=== PATIENT | female | born 1980 | race African-American/Black ===

== ENCOUNTER 2020-09-04 08:29 | Outpatient (REF) | payer MEDICARE, MEDICAID, SELFPAY ==
--- NOTE | 2020-09-04 08:36 | FL_ITS ---
EXAMINATION: XR GI SERIES CLINICAL INFORMATION: Reflux and cough. COMPARISON: None TECHNIQUE: Routine upper GI air-contrast study was performed in upright and lying position. FINDINGS: Following oral administration of thick barium and effervescent granules, there is normal propagation bolus from the oral cavity through the pharynx, esophagus into stomach without any evidence of obstruction, narrowing, or stricture. On placing patient prone and supine, the course, caliber and peristalsis of the stomach is normal. The mucosal pattern of the stomach, duodenal bulb and sweep is normal. There is mild gastroesophageal reflux without hiatal hernia. FLUOROSCOPY TIME: 1.6 minutes DOSE AREA PRODUCT: 64.9 uGy-m2 (microgray-meter squared) FL/FL upper GI series IMPRESSION: Mild gastroesophageal reflux without hiatal hernia. The rest of the upper GI exam is unremarkable.
--- NOTE | 2020-09-04 08:36 | FL_ITS ---
EXAMINATION: XR GI SERIES CLINICAL INFORMATION: Reflux and cough. COMPARISON: None TECHNIQUE: Routine upper GI air-contrast study was performed in upright and lying position. FINDINGS: Following oral administration of thick barium and effervescent granules, there is normal propagation bolus from the oral cavity through the pharynx, esophagus into stomach without any evidence of obstruction, narrowing, or stricture. On placing patient prone and supine, the course, caliber and peristalsis of the stomach is normal. The mucosal pattern of the stomach, duodenal bulb and sweep is normal. There is mild gastroesophageal reflux without hiatal hernia. FLUOROSCOPY TIME: 1.6 minutes DOSE AREA PRODUCT: 64.9 uGy-m2 (microgray-meter squared) FL/FL barium swallow IMPRESSION: Mild gastroesophageal reflux without hiatal hernia. The rest of the upper GI exam is unremarkable.
== END 2020-09-04 08:30 | disposition home or self-care (01) ==
LOC: HO.XRAY 08:29
PROVIDERS: Visit Provider Internal Medicine Gastroenterology
DX: K21.9 Gastro-esophageal reflux disease without esophagitis (principal); R05 Cough
CPT/HCPCS: 74220; 74240

== ENCOUNTER → 2020-09-23 08:57 | Outpatient (BNVA) | payer MEDICARE, MEDICAID, SELFPAY | PROVIDERS: PCP Internal Medicine; Visit Provider Hospitalist | DX: J45.909 Unspecified asthma, uncomplicated (principal); R60.1 Generalized edema; G47.33 Obstructive sleep apnea (adult) (pediatric); Z79.899 Other long term (current) drug therapy; Z99.89 Dependence on other enabling machines and devices | CPT/HCPCS: 99212 ==

== ENCOUNTER → 2020-11-20 09:03 | Outpatient (BNVA) | payer OTHER, SELFPAY | PROVIDERS: PCP Internal Medicine; Visit Provider Hospitalist | DX: G47.33 Obstructive sleep apnea (adult) (pediatric) (principal); J45.909 Unspecified asthma, uncomplicated; R60.1 Generalized edema; Z99.89 Dependence on other enabling machines and devices | CPT/HCPCS: 99212 ==

== ENCOUNTER → 2020-12-16 09:24 | Outpatient (REF) | payer OTHER, SELFPAY ==
--- NOTE | 2020-12-16 09:27 | CA_ITS ---
Transthoracic Echocardiogram Patient (Last, First, Middle): Mandy De La Torre M Gender: Female Date of : 1980 Age: 40 Procedure Date: 12/16/2020 Procedure Type: Transthoracic Echocardiogram Location: OP Height: 162.56 cm Weight: 145.15 kg BSA: 2.39 m2 Heart Rate: bpm BP: 106 / 60 mmHg [employer] Teacher: DSDavid Referring MD: Spike Gould MD Symptoms: R60.1 - Generalized edema Study Quality: Fair ECG Rhythm: Sinus Conclusions: - The left ventricular systolic function is normal. The visually estimated ejection fraction is between 55-60%. - No obvious valvular pathology seen on this study. - The pulmonary artery systolic pressure is normal. - The inferior vena cava is normal in size and collapses greater than 50% with inspiration. Findings Left Ventricle Normal left ventricular cavity size. There is normal left ventricular wall thickness. The left ventricular systolic function is normal. The visually estimated ejection fraction is between 55-60%. There is no evidence of regional wall motion abnormalities. Diastolic function is normal for age. Right Ventricle The right ventricle was not well visualized. There is normal right ventricular systolic function. Atria Both atria are normal in size. Aortic Valve There is a normal trileaflet aortic valve. There is no aortic valve stenosis. There is no aortic valve regurgitation. Mitral Valve The mitral valve appears normal. There is no mitral valve regurgitation. There is no mitral valve stenosis. Pulmonic Valve The pulmonic valve was not well visualized. Tricuspid Valve There is trace tricuspid valve regurgitation. The pulmonary artery systolic pressure is normal. Great Vessels The aortic annulus, sinuses of valsalva, and asc aorta are normal in size. Venous The inferior vena cava is normal in size and collapses greater than 50% with inspiration. Pericardium/Pleural There is no evidence of pericardial effusion. Prior Study Comparison No prior study available for comparison. Recommendations, Care & Conclusions No obvious valvular pathology seen on this study. Measurements 2D Linear Measurements IVSd: 1.22 0.6-0.9/0.6-1.0 cm LVIDd: 5.09 3.9-5.3/4.2-5.9 cm LVIDd Index: 2.13 2.4-3.2/2.2-3.1 cm/m2 LVIDs: 3.70 2.0-3.6 cm LVPWd: 1.12 0.7-1.1 cm Ao Root: 2.60 2.1-3.5 cm LA Diam: 4.40 2.7-3.8/3.0-4.0 cm LAIDs Index: 1.84 1.5-2.3 cm/m2 LV Mass: 289.43 67-162/88-224 g LV Mass Index: 121.10 43-95/49-115 g/m2 LVOT Diam: 2.20 3.0+(-)1.3 cm 2D Systolic Function EF 4C: 58.40 >55% Mitral Valve MV Pk E: 1.05 MV PK A: 0.85 MV Decel Time: 187.00 E/A: 1.20 E'Lateral: 13.60 E'Medial: 9.90 E/E' Med: 10.60 E/E' Lat: 7.70 PHT: 55.00 MVA PHT: 4.00 Decel Pepin: 5.64 Aortic Valve AoV Pk Angel: 1.49 AoV Pk Grad: 9.00 LVOT LVOT Pk Angel: 0.99 LVOT Mn Angel: 0.62 LVOT VTI: 0.22 LVOT Pk Grad: 4.00 LVOT Mn Grad: 2.00 LVOT Diam: 2.20 LVOT Area: 3.80 Diastolic Function MV Pk E: 1.05 MV Pk A: 0.85 E/A: 1.20 E'Medial: 9.90 E/E' Med: 10.60 E' Laterial: 13.60 E/E' Lat: 7.70 Tricuspid Valve TR Pk Angel: 2.00 TR Pk Grad: 16.00 RA Press: 3.00 RVSP: 19.00 Great Vessels Aorta Ao Root-2D: 2.60 2.0-3.7 cm Ao Asc: 3.30 2.1-3.4 cm Updated in Other Vendor System with Status of Final Flaco Graves MD electronically signed on 12/16/2020 12:29:35 PM with status of Final
== END ==
LOC: HO.CARD 09:24
PROVIDERS: PCP Internal Medicine; Visit Provider Hospitalist
DX: R60.1 Generalized edema (principal)
CPT/HCPCS: 93306

== ENCOUNTER → 2021-01-19 11:09 | Outpatient (BNVA) | payer OTHER, SELFPAY | PROVIDERS: PCP Internal Medicine; Visit Provider Hospitalist | DX: G47.33 Obstructive sleep apnea (adult) (pediatric) (principal); J30.9 Allergic rhinitis, unspecified; U07.1 COVID-19; Z99.89 Dependence on other enabling machines and devices | CPT/HCPCS: Q3014 ==

== ENCOUNTER 2021-01-22 08:44 | Outpatient (REF) | payer OTHER, SELFPAY ==
[2021-01-22 09:10] LABS: MANUAL DIFF FLAG NO
[2021-01-22 09:14] LABS: Basophils Percent Auto 0.2 % (0-2); Eosinophils Percent Auto 0.4 % (0-4); Hematocrit 37.5 % (37-47); Hemoglobin 11.8 g/dl (12.0-16.0); Imm Gran Abs Auto 0.05 X10*3/uL (0.00-0.03); Imm Gran Pct Auto 0.6 % (0.0-0.4); Lymphocytes Percent Auto 11.2 % (20-40); Mean Corpuscular HGB Conc 31.5 g/dl (31.0-35.0); Mean Corpuscular Hemoglobin 26.9 pg (27.0-33.0); Mean Corpuscular Volume 85.4 fL (80-98); Mean Platelet Volume 10.5 fL (9.4-12.3); Monocytes Absolute Auto 0.5 X10*3/uL (0.1-1.2); Neutrophils Absolute Auto 7.5 X10*3/uL (2.0-8.3); Neutrophils Percent Auto 82.6 % (45-73); Platelet Count 184 X10*3/uL (160-400); Red Blood Count 4.39 X10*6/uL (4.20-5.50); Red Cell Distribution Width 16.4 % (11.0-16.0); White Blood Count 9.1 X10*3/uL (4.8-10.8)
[2021-01-22 10:09] LABS: Erythrocyte Sedimentation Rate 13 MM/HR (0-20)
[2021-01-25 04:10] LABS: SARS COV2 IgG Positive (Negative)
== END 2021-01-22 08:45 | disposition home or self-care (01) ==
LOC: HO.LAB 08:44
PROVIDERS: Visit Provider Hospitalist
DX: G47.33 Obstructive sleep apnea (adult) (pediatric) (principal); J30.9 Allergic rhinitis, unspecified; R60.1 Generalized edema; Z20.822 Contact with and (suspected) exposure to COVID-19; Z99.89 Dependence on other enabling machines and devices
CPT/HCPCS: 36415; 85025; 85652; 86769

== ENCOUNTER 2021-02-16 14:07 | Outpatient (REF) | payer OTHER, SELFPAY ==
--- NOTE | ~2021-02-16 | XR_ITS ---
EXAMINATION: XR CHEST CLINICAL INFORMATION: Obstructive sleep apnea COMPARISON: Previous chest x-ray April 2020 TECHNIQUE: 2 views of the chest were obtained. FINDINGS: The cardiac and mediastinal contours are stable. The lung volumes are low. The lungs are clear. There is no pleural effusion or pneumothorax. Bony structures are normal. XR/XR chest 2V IMPRESSION: No evidence for acute disease in the chest.
== END 2021-02-16 14:08 | disposition home or self-care (01) ==
LOC: HO.XRAY 14:07
PROVIDERS: PCP Family Medicine; Visit Provider Hospitalist
DX: G47.33 Obstructive sleep apnea (adult) (pediatric) (principal); J45.909 Unspecified asthma, uncomplicated; R60.1 Generalized edema; Z99.89 Dependence on other enabling machines and devices
CPT/HCPCS: 71046; 99212

== ENCOUNTER → 2021-06-18 09:02 | Outpatient (BNVA) | payer OTHER, SELFPAY | PROVIDERS: PCP Physician Assistant; Visit Provider Hospitalist | DX: J45.40 Moderate persistent asthma, uncomplicated (principal); J30.9 Allergic rhinitis, unspecified; G47.33 Obstructive sleep apnea (adult) (pediatric); Z99.89 Dependence on other enabling machines and devices | CPT/HCPCS: 99212 ==

== ENCOUNTER → 2021-07-07 08:03 | Outpatient (BNVA) | payer OTHER, SELFPAY | PROVIDERS: Visit Provider Physician Assistant | DX: E66.01 Morbid (severe) obesity due to excess calories (principal); G47.33 Obstructive sleep apnea (adult) (pediatric); G47.00 Insomnia, unspecified; J45.40 Moderate persistent asthma, uncomplicated; F41.8 Other specified anxiety disorders; Z99.89 Dependence on other enabling machines and devices; Z68.43 Body mass index [BMI] 50.0-59.9, adult | CPT/HCPCS: 99202 ==

== ENCOUNTER 2021-07-14 09:43 | Outpatient (REF) | payer OTHER, SELFPAY ==
[2021-07-16 13:27] LABS: H Pylori Breath Test NOT DETECTED (NOT DETECTED)
== END 2021-07-14 09:44 | disposition home or self-care (01) ==
LOC: HO.LNP 09:43
PROVIDERS: Visit Provider Physician Assistant
DX: Z01.818 Encounter for other preprocedural examination (principal); E66.01 Morbid (severe) obesity due to excess calories
CPT/HCPCS: 83013; 99211

== ENCOUNTER 2021-07-21 08:22 | Outpatient (REF) | payer OTHER, SELFPAY ==
--- NOTE | ~2021-07-21 | XR_ITS ---
EXAMINATION: XR CHEST CLINICAL INFORMATION: Morbid obesity COMPARISON: 04/27/2020 TECHNIQUE: 2 views of the chest were obtained. FINDINGS: Normal symmetric lung volumes. No parenchymal consolidation. No pleural effusion. No pneumothorax. Cardiomediastinal silhouette and pulmonary vascularity are within normal limits. No acute osseous abnormalities. XR/XR chest 2V IMPRESSION: Unremarkable examination.
--- NOTE | 2021-07-21 08:31 | ECG_ITS ---
Test Reason : morbid obesity Blood Pressure : / mmHG Vent. Rate : 085 BPM Atrial Rate : 085 BPM P-R Int : 140 ms QRS Dur : 082 ms QT Int : 378 ms P-R-T Axes : -10 -04 010 degrees QTc Int : 449 ms Normal sinus rhythm Normal ECG No previous ECGs available Referred By: Sharita Sotelo Electronically Signed By:LUCIEN CURRAN
[2021-07-21 08:47] LABS: MANUAL DIFF FLAG NO
[2021-07-21 08:54] LABS: Basophils Absolute Auto 0.1 X10*3/uL (0.0-0.2); Basophils Percent Auto 0.7 % (0-2); Eosinophils Absolute Auto 0.6 X10*3/uL (0.0-0.4); Imm Gran Abs Auto 0.04 X10*3/uL (0.00-0.03); Imm Gran Pct Auto 0.5 % (0.0-0.4); Lymphocytes Absolute Auto 1.7 X10*3/uL (1.2-4.9); Lymphocytes Percent Auto 20.9 % (20-40); Mean Corpuscular HGB Conc 31.6 g/dl (31.0-35.0); Mean Corpuscular Hemoglobin 26.5 pg (27.0-33.0); Mean Corpuscular Volume 83.9 fL (80-98); Mean Platelet Volume 10.5 fL (9.4-12.3); Monocytes Absolute Auto 0.6 X10*3/uL (0.1-1.2); Monocytes Percent Auto 7.7 % (2-11); Neutrophils Absolute Auto 5.3 X10*3/uL (2.0-8.3); Neutrophils Percent Auto 63.2 % (45-73); Platelet Count 243 X10*3/uL (160-400); Red Blood Count 4.53 X10*6/uL (4.20-5.50); Red Cell Distribution Width 15.3 % (11.0-16.0); White Blood Count 8.3 X10*3/uL (4.8-10.8)
[2021-07-21 09:09] LABS: Estimated Average Glucose 120 mg/dL; Hemoglobin A1c % 5.8 %
[2021-07-21 09:26] LABS: Alanine Aminotransferase 21 U/L (0-31); Albumin Level 4.2 g/dL (3.5-5.0); Alkaline Phosphatase 61 U/L (39-117); Anion Gap 13 (12-20); Aspartate Amino Transferase 18 U/L (5-31); Bilirubin Total 0.7 mg/dL (0.0-1.0); Blood Urea Nitrogen 14 mg/dL (9-16); C Reactive Protein 2.16 mg/dL (< or = 0.50); Calcium 9.4 mg/dL (8.4-10.2); Carbon Dioxide 22 mmol/L (22-29); Chloride 110 mmol/L (96-108); Cholesterol 129 mg/dL; Estimated Glomerular Filt Rate > 60; Glucose Random 115 mg/dL (60-115); HDL Cholesterol 39 mg/dL; Iron 62 mcg/dL (30-160); LDL Cholesterol Calculated 75 mg/dl; Percent Iron Saturation 16 % (15-50); Sodium 141 mmol/L (135-145); Total Iron Binding Capacity 384 mcg/dL (228-428); Triglycerides 76 mg/dL; Unsaturated Iron Binding 322 ug/dL
[2021-07-21 09:34] LABS: Ferritin 46 ng/mL (10-122); TSH reflex Free T4 2.58 uIU/mL (0.32-4.0); Vitamin D 25-OH Total 18.4 ng/mL (>30)
[2021-07-21 09:50] LABS: Folate 17.5 ng/mL (> or = 4.0); Vitamin B12 486 pg/mL (200-900)
[2021-07-23 12:12] LABS: Calcium (PTHI) 9.2 mg/dL (8.6-10.2); PTHI 30 pg/mL (14-64)
[2021-07-24 22:17] LABS: Zinc 79 mcg/dL (60-130)
[2021-07-25 10:37] LABS: Vitamin B1 11 nmol/L (8-30)
[2021-07-27 18:02] LABS: Vitamin A 35 mcg/dL (38-98)
== END 2021-07-21 08:23 | disposition home or self-care (01) ==
LOC: HO.LAB 08:22
PROVIDERS: PCP Family Medicine; Visit Provider Physician Assistant
DX: Z01.818 Encounter for other preprocedural examination (principal); E66.01 Morbid (severe) obesity due to excess calories
CPT/HCPCS: 36415; 71046; 80053; 80061; 82306; 82607; 82728; 82746; 83036; 83525; 83540; 83970; 84425; 84443; 84590; 84630; 85025; 86140; 93005

== ENCOUNTER → 2021-08-27 15:26 | Outpatient (BNVA) | payer OTHER, SELFPAY | PROVIDERS: Referring Provider Family Medicine; Visit Provider Physician Assistant | DX: F50.81 Binge eating disorder (principal); E66.01 Morbid (severe) obesity due to excess calories; Z68.43 Body mass index [BMI] 50.0-59.9, adult | CPT/HCPCS: 99212 ==

== ENCOUNTER → 2021-08-31 08:02 | Outpatient (BNVA) | payer OTHER, SELFPAY | PROVIDERS: PCP Family Medicine; Visit Provider Dietitian, Registered | DX: E66.01 Morbid (severe) obesity due to excess calories (principal) | CPT/HCPCS: 97802 ==

== ENCOUNTER 2021-09-07 09:28 | Outpatient (REF) | payer OTHER, SELFPAY ==
--- NOTE | ~2021-09-07 | US_ITS ---
EXAMINATION: US COMPLETE ABDOMEN WITH LIVER ELASTOGRAPHY CLINICAL INFORMATION: Obesity COMPARISON: None. TECHNIQUE: Real-time imaging of the abdominal viscera. Noninvasive ultrasound liver fibrosis assessment is performed using Aleksander ElastPQ point quantification shear wave elastography (pSWE) with a C5-2 MHz transducer. Multiple elastography samples are obtained. FINDINGS: PANCREAS: Normal. ABDOMINAL AORTA: The proximal, middle, and distal aortic segments are normal in caliber. INFERIOR VENA CAVA: Visualized portions are normal. LIVER: Liver echotexture is very. The liver is enlarged. Liver contour is normal. No focal lesion or intrahepatic biliary duct dilatation. The right lobe measures 20 cm in length. The left lobe measures 15 cm in length. Portal flow is normal/hepatopedal Shear wave liver elastography median stiffness is 1.09 m/s (reference: normal median stiffness is 1.3 m/s or less). IQR/median stiffness to assess sampling precision is 0.1 (reference: good quality data set is IQR/median stiffness of 0.15 or less). GALLBLADDER: Normal. The gallbladder is physiologically distended without evidence of stones, sludge, polyps, wall thickening or pericholecystic fluid. COMMON BILE DUCT: Normal in caliber measuring 0.3 cm in diameter. RIGHT KIDNEY: Normal. No hydronephrosis. No renal calculi or focal parenchymal lesions. The kidney measures 13 cm in maximum dimension. LEFT KIDNEY: Normal. No hydronephrosis. No renal calculi or focal parenchymal lesions. The kidney measures 13 cm in maximum dimension. SPLEEN: Normal. The spleen measures 9 cm in maximum dimension. FREE FLUID: None. US/US abdomen comp w elastography IMPRESSION: 1. Impression: Enlarged echogenic liver probably representing fatty infiltration. 2. Liver elastography: Evaluate both the liver sampling. Normal liver stiffness. REFERENCE: Society of Radiologists in Ultrasound Liver Stiffness Thresholds (2020): LIVER STIFFNESS THRESHOLDS: *Liver Stiffness equal or less than 1.3 m/s: High probability of being normal. *Liver Stiffness less than 1.7 m/s: In the absence of other known clinical signs, rules out compensated advanced chronic liver disease. *Liver Stiffness 1.7-2.1 m/s: Suggestive of compensated advanced chronic liver disease but need further test for confirmation. *Liver Stiffness over 2.1 m/s: Rules in compensated advanced chronic liver disease. *Liver Stiffness over 2.4 m/s: Suggestive of clinically significant portal hypertension. QUALITY OF DATA SET: *IQR/Median value equal or less than 0.15 implies a quality data set. *IQR/Median value over 0.15 implies a poor quality data set. SIGNIFICANT CHANGE FROM PRIOR EXAM: Significant change if liver stiffness measurement is 10% or greater from prior exam. OTHER CONSIDERATIONS: The stage of liver fibrosis may be overestimated in the setting of acute hepatitis, liver inflammation, elevated liver function tests, hepatic vascular congestion, obstructive cholestasis, non-fasting state, and infiltrative diseases such as amyloidosis and lymphoma. In some patients with NAFLD, the liver stiffness thresholds for compensated advanced chronic liver disease may be lower. In causes other than viral hepatitis and NAFLD, liver stiffness thresholds are not well established.
--- NOTE | ~2021-09-07 | FL_ITS ---
EXAMINATION: XR GI SERIES CLINICAL INFORMATION: Obesity COMPARISON: Previous exam August 2020 TECHNIQUE: Upper GI was performed using thin and thick barium and effervescent granules. FINDINGS: Esophageal motility is normal. No hernia or reflux is seen. The stomach and duodenum are normal-appearing. No fold thickening, ulcer, mass or stricture is seen. FLUOROSCOPY TIME: 0.4 minutes DOSE AREA PRODUCT: 6 cherry per centimeter squared. 29 saved fluoroscopic images. FL/FL upper GI series IMPRESSION: Unremarkable examination.
== END 2021-09-07 09:29 | disposition home or self-care (01) ==
LOC: HO.US 09:28
PROVIDERS: Visit Provider Surgery
DX: Z01.818 Encounter for other preprocedural examination (principal); E66.01 Morbid (severe) obesity due to excess calories
CPT/HCPCS: 74240; 76705; 76981

== ENCOUNTER → 2021-09-29 08:11 | Outpatient (BNVA) | payer OTHER, SELFPAY | PROVIDERS: Visit Provider Physician Assistant | CPT/HCPCS: Q3014 ==

== ENCOUNTER → 2021-10-26 14:38 | Outpatient (BNVA) | payer OTHER, SELFPAY | PROVIDERS: PCP Physician Assistant; Visit Provider Hospitalist | DX: J45.40 Moderate persistent asthma, uncomplicated (principal); G47.33 Obstructive sleep apnea (adult) (pediatric); J30.9 Allergic rhinitis, unspecified; Z99.89 Dependence on other enabling machines and devices | CPT/HCPCS: 99212 ==

== ENCOUNTER → 2022-07-26 10:39 | Outpatient (BNVA) | payer OTHER, SELFPAY | PROVIDERS: PCP Physician Assistant; Visit Provider Hospitalist | DX: G47.33 Obstructive sleep apnea (adult) (pediatric) (principal); J45.40 Moderate persistent asthma, uncomplicated; J30.9 Allergic rhinitis, unspecified; Z99.89 Dependence on other enabling machines and devices | CPT/HCPCS: 99212 ==

== ENCOUNTER 2023-06-09 10:57 | Outpatient (AMB) | payer OTHER, SELFPAY ==
--- NOTE | 2023-06-09 11:11 | MHC.OFFVIS ---
Intake Vital Signs 06/09/23 11:13 Height 5 ft 4 in Weight 295 lb BMI 50.6 Pulse 83 Pulse Source Pulse Oximeter Pulse Oximetry (%) 98 Oxygen Delivery Method Room Air Intake Visit Reasons: duy Allergies No Known Allergies Allergy (Verified 06/09/23 11:12) HPI HPI Comments History of Present Illness Details The patient is a 42-year-old woman known asthma . She continues to have significant shortness of breath. She has had multiple courses of prednisone for exacerbations. The last time she went to the ER at [facility] was in beginning of August and diagnosed with bronchitis and given a course of antibiotics and prednisone. She also underwent a CT scan of the chest that we reviewed demonstrating relatively normal parenchyma but evidence of bronchitis. She also has a new pulmonary nodule that needs to be followed. She continues to use the CPAP. The CPAP therapy continues to be affecting beneficial. She continues to follow-up with allergy and immunology. She has been on Cincair now for about 4 months. She has not seen any significant effects. Her IgE level was elevated previously. Also to note her hypersensitivity panel did demonstrate some activity to phoma mold. She had recent surgery for carpal tunnel on the right arm. She still still healing to this. In the meantime she has noticed increasing shortness of breath and on chest tightness. She was started on the budesonide again. She continues on the Dulera. She continues on the Spiriva. She has been on the Cinqair now for about 5 months. She also was started on Daliresp for multiple exacerbations. She seems to be tolerating okay except for GI symptoms. Hopefully soon should develop tolerance. She was evaluated for her elevated SUNDAR by Rheumatology. Did not find any rheumatological involvement at this time. However, then she developed a rash on her face concerning for malar rash. Her primary care doctor referred her to a Dermatology appointment for question lupus rash. 10/26/2021 the patient is here for a pulmonary follow-up visit. Overall she is doing better. She continues on the Dupixent. The therapy has been affecting beneficial. She also continues with the current respiratory regimen. She has not require prednisone see last evaluate her back in the summer. The patient continues to walk regularly. She is going to be signing up to the weight loss management program soon. She continues on her CPAP. She is having difficulties with her mask. Will try an F30 small mask. She continues use her CPAP more than 4 hours a night. The therapy has been affecting beneficial for her. She will be getting the flu shot then the booster covid vaccine. 07/26/2022 the patient is here for pulmonary follow-up visit. Overall the patient has been doing well. Recently though she did have a slight exacerbation needing a prednisone taper. Now she is back to her baseline. The patient has been using Dupixent every 2 weeks with good effect. She continues with respiratory therapy as well. She has been working on weight management. She been referred to a new weight director of program management to help her with her goal. In the meantime she continues up. The CPAP therapy continues to be effective in beneficial. The patient does uses CPAP more than 4 hours a night. She has been getting the wrong mask from her DME company. I will recent prescription. The patient does prefer the F30 small mask. Otherwise patient is without any other complaints. 06/09/2023 the patient is here for pulmonary follow-up visit. The patient is starting to feel better now. She did developed COVID-19 and did have her asthma flaring up. She did require additional respiratory medication. She did not require any prednisone or antibiotics. Although she did develop a productive cough for a period time. Now the symptoms have been subsiding. She also has been using her CPAP. The CPAP therapy continues to be affecting beneficial. She does use it for more than 4 hours a night. Although sometimes the machine is shutting off on his own making it difficult for her to be able to get a good night's sleep. Seems like the machine is no longer working properly. I will request a replacement CPAP machine from her [employer] company to be provided if the machine is more than 5 years. Otherwise she will have to bring machine in to her DME company for evaluation. The patient has been using the Dupixent for asthma. She is tolerating the biologic well without any adverse effects at this time. [facility] Medical History (Updated 07/13/21 @ 11:42 by Naomie Vargas [facility]) Allergies Anasarca Asthma Carpal tunnel syndrome Chronic allergic rhinitis COVID-19 DUY on CPAP Surgical History Hx of carpal tunnel repair Family History Mother Heart problem History of hypertension Diabetes Asthma Carpal tunnel syndrome Depression H/O knee surgery Hearing voices Father Heart problem Asthma Diabetes History of hypertension Sister Asthma Depression Fibromyalgia Brother No problems noted. Brother Asthma Down syndrome Brother Asthma Brother Asthma Brother No problems noted. Social History Alcohol intake: current Alcohol intake frequency: holidays/special occasions only Patient Tobacco Use Status: Never used Tobacco Review of Systems Const Denies night sweats ENT Denies change in voice, Denies lip swelling, Denies mouth pain, Reports nasal congestion, Reports nasal discharge and Denies tongue swelling Card Denies chest pain, Reports edema, Reports leg edema and Reports dyspnea on exertion Resp Denies chest congestion, Reports cough, Denies excessive phlegm production, Denies pain with cough and Reports dyspnea on exertion GI Denies abdominal pain Musc Denies no additional complaints Neuro Denies Neuro-related abnormal movements Psych Denies no additional complaints Mina/Lymph Denies easy bleeding and Denies lymphadenopathy Aller/Immun Denies lip swelling and Denies tongue swelling Physical Exam Vital Signs: Last Vital Signs Pulse 83 06/09/23 11:13 Pulse Ox 98 06/09/23 11:13 Oxygen Delivery Method Room Air 06/09/23 11:13 BMI result Body Mass Index 50.6 Const General: alert Eyes Pupils: Equal, round and reactive pupils present Neck Neck: Yes normal visual inspection, Yes full ROM and Yes no lymphadenopathy Chest Chest palpation & inspection: normal inspection of the chest Resp Auscultation: no rales, no rhonchi, no wheezes and diminished lung sounds Cardio Rate: regular rate Rhythm: regular rhythm Heart sounds: S1 normal heart sound present and S2 normal heart sound present GI Palpation (GI): Soft to palpation and nontender Auscultation: normal bowel sounds Skin General skin exam: rashes and/or lesions noted Neuro Cranial nerves: Yes Equal, round and reactive pupils present Extrem General: Yes edema Assessment & Plan Assessment & Plan (1) Asthma: Code(s): J45.909 - Unspecified asthma, uncomplicated Qualifiers: Asthma severity: moderate Asthma persistence: persistent Asthma complication type: uncomplicated Qualified Code(s): J45.40 - Moderate persistent asthma, uncomplicated (2) Chronic allergic rhinitis: Code(s): J30.9 - Allergic rhinitis, unspecified (3) DUY on CPAP: Code(s): G47.33 - Obstructive sleep apnea (adult) (pediatric); Z99.89 - Dependence on other enabling machines and devices Plan Continue Dulera continue Spiriva LIU as needed Duoneb as needed Continue CPAP therapy, Requesting F30 small mask. Machine malfuctioning, will request a replacement from her [employer] company, [employer] Follow-up in 6 months Medications: New albuterol sulfate 90 mcg/actuation 2 inhalations inhalation Q6H 30 days PRN 18 grams 12RF shortness of breath or wheezing J44.9 - Chronic obstructive pulmonary disease, unspecified Discontinued roflumilast (Daliresp) Discontinued Reason: Doctor's Order 500 mcg PO DAILY 30 tabs 3RF Coding Level of Care Code Est Pt Level 4 (53923) Diagnoses Asthma J45.40 Asthma severity: moderate Asthma persistence: persistent Asthma complication type: uncomplicated Chronic allergic rhinitis J30.9 DUY on CPAP G47.33; Z99.89 Time Spent (min) 18
[2023-06-09 11:13] VITALS: PULSE 83; O2SAT 98; BMI 50.6
== END 2023-06-09 11:56 | disposition home or self-care (01) ==
PROVIDERS: PCP Physician Assistant; Visit Provider Hospitalist
DX: J45.40 Moderate persistent asthma, uncomplicated (principal); J30.9 Allergic rhinitis, unspecified; G47.33 Obstructive sleep apnea (adult) (pediatric); Z99.89 Dependence on other enabling machines and devices
CPT/HCPCS: 99214

== ENCOUNTER → 2023-06-09 10:57 | Outpatient (BNVA) | payer OTHER, SELFPAY | PROVIDERS: Visit Provider Hospitalist | DX: J45.40 Moderate persistent asthma, uncomplicated (principal); J30.9 Allergic rhinitis, unspecified; G47.33 Obstructive sleep apnea (adult) (pediatric); Z99.89 Dependence on other enabling machines and devices | CPT/HCPCS: 99212 ==

== ENCOUNTER 2024-03-25 11:07 | Outpatient (AMB) | payer OTHER, SELFPAY ==
[2024-03-25 11:15] VITALS: PULSE 74; O2SAT 99; BMI 45.7
--- NOTE | 2024-03-25 11:15 | A.OFFVIS_ITS ---
Vital Signs 03/25/24 11:15 Height 5 ft 4 in Weight 266 lb BMI 45.7 Pulse 74 Pulse Source Pulse Oximeter Pulse Oximetry (%) 99 Oxygen Delivery Method Room Air Intake Visit Reasons: duy Quality Assurance/R&D Lab Technician Required: No Allergies No Known Allergies Allergy (Verified 03/25/24 11:16) HPI Comments Details: The patient is a 43-year-old woman known asthma . She continues to have significant shortness of breath. She has had multiple courses of prednisone for exacerbations. The last time she went to the ER at [facility] was in beginning of August and diagnosed with bronchitis and given a course of antibiotics and prednisone. She also underwent a CT scan of the chest that we reviewed demonstrating relatively normal parenchyma but evidence of bronchitis. She also has a new pulmonary nodule that needs to be followed. She continues to use the CPAP. The CPAP therapy continues to be affecting beneficial. She continues to follow-up with allergy and immunology. She has been on Cincair now for about 4 months. She has not seen any significant effects. Her IgE level was elevated previously. Also to note her hypersensitivity panel did demonstrate some activity to phoma mold. She had recent surgery for carpal tunnel on the right arm. She still still healing to this. In the meantime she has noticed increasing shortness of breath and on chest tightness. She was started on the budesonide again. She continues on the Dulera. She continues on the Spiriva. She has been on the Cinqair now for about 5 months. She also was started on Daliresp for multiple exacerbations. She seems to be tolerating okay except for GI symptoms. Hopefully soon should develop tolerance. She was evaluated for her elevated USNDAR by Rheumatology. Did not find any rheumatological involvement at this time. However, then she developed a rash on her face concerning for malar rash. Her primary care doctor referred her to a Dermatology appointment for question lupus rash. 06/09/2023 the patient is here for pulmonary follow-up visit. The patient is starting to feel better now. She did developed COVID-19 and did have her asthma flaring up. She did require additional respiratory medication. She did not require any prednisone or antibiotics. Although she did develop a productive cough for a period time. Now the symptoms have been subsiding. She also has been using her CPAP. The CPAP therapy continues to be affecting beneficial. She does use it for more than 4 hours a night. Although sometimes the machine is shutting off on his own making it difficult for her to be able to get a good night's sleep. Seems like the machine is no longer working properly. I will request a replacement CPAP machine from her [employer] company to be provided if the machine is more than 5 years. Otherwise she will have to bring machine in to her DME company for evaluation. The patient has been using the Dupixent for asthma. She is tolerating the biologic well without any adverse effects at this time. 03/25/2024 the patient is here for a pulmonary follow-up visit. The patient overall has been doing well from a respiratory status she continues to respond very well to the Dupixent. Denies any allergic reaction to it denies any rashes or any conjunctivitis. She continues to use her respiratory medications as prescribed. She any prednisone. She typically does not have to use her albuterol more than once or twice a week. Her CPAP therapy continues to be affecting beneficial. She has a malfunctioning machine though. Based on her [employer] company, regional she is due for a new 1 at this time. Therefore will send a script for a replacement machine. She does use a fullface mask although sometimes she feels claustrophobic and she wishes she had a small 1. She may benefit from nasal pillows with a chinstrap but I do not have 1 available. The patient will continue using the CPAP as is been very affecting beneficial when she does use it for more than 4 hours a night. She is having issues right now because she is being displaced since her current apartment situation is being sold and is no longer available after May. So she is concerned because of her underlying respiratory issues. I did provide her a letter to make sure that she has something documenting her respiratory issues and she can be provided any assistance. Otherwise patient is doing well will follow-up in 6 months if he has any new issues she can always call for an earlier assessment. [facility] Medical History (System 10/18/23 @ 14:49 by Shanta Lawson) Carpal tunnel syndrome Allergies COVID-19 DUY on CPAP Chronic allergic rhinitis Asthma Anasarca Surgical History Hx of carpal tunnel repair Family History Mother Heart problem History of hypertension Diabetes Asthma Carpal tunnel syndrome Depression H/O knee surgery Hearing voices Father Heart problem Asthma Diabetes History of hypertension Sister Asthma Depression Fibromyalgia Brother No problems noted. Brother Asthma Down syndrome Brother Asthma Brother Asthma Brother No problems noted. Social History (System 10/18/23 @ 14:49 by Shanta Lawson) Alcohol intake: current Alcohol intake frequency: holidays/special occasions only Patient Tobacco Use Status: Never used Tobacco Review of Systems Const Denies night sweats ENT Denies change in voice, Denies lip swelling, Denies mouth pain, Reports nasal congestion, Reports nasal discharge and Denies tongue swelling Card Denies chest pain, Reports leg edema and Reports dyspnea on exertion Resp Denies chest congestion, Reports cough, Denies excessive phlegm production, Denies pain with cough, Reports dyspnea on exertion and Reports wheezing GI Denies abdominal pain Musc Denies no additional complaints Neuro Denies Neuro-related abnormal movements Psych Denies no additional complaints Mina/Lymph Denies easy bleeding and Denies lymphadenopathy Aller/Immun Denies lip swelling, Denies tongue swelling and Reports wheezing Physical Exam Vital Signs: Last Vital Signs Pulse 74 03/25/24 11:15 Pulse Ox 99 03/25/24 11:15 Oxygen Delivery Method Room Air 03/25/24 11:15 BMI result Body Mass Index 45.7 Const General: alert HEENT Head: Yes normocephalic Eyes Pupils: Equal, round and reactive pupils present Neck Neck: Yes normal visual inspection, Yes full ROM and Yes no lymphadenopathy Chest Chest palpation & inspection: normal inspection of the chest Resp Effort & Inspection: normal respiratory effort Auscultation: no rales, no rhonchi, no wheezes and diminished lung sounds Cardio Rate: regular rate Rhythm: regular rhythm Heart sounds: S1 normal heart sound present and S2 normal heart sound present GI Palpation (GI): Soft to palpation and nontender Auscultation: normal bowel sounds Skin General skin exam: rashes and/or lesions noted Neuro Cranial nerves: Yes Equal, round and reactive pupils present Extrem General: Yes edema Assessment & Plan Assessment & Plan (1) Asthma: Code(s): J45.909 - Unspecified asthma, uncomplicated Category: Medical Qualifiers: Asthma complication type: uncomplicated Asthma persistence: persistent Asthma severity: moderate Qualified Code(s): J45.40 - Moderate persistent asthma, uncomplicated (2) Chronic allergic rhinitis: Code(s): J30.9 - Allergic rhinitis, unspecified Category: Medical (3) DUY on CPAP: Code(s): G47.33 - Obstructive sleep apnea (adult) (pediatric); Z99.89 - Dependence on other enabling machines and devices Category: Medical Plan Continue Dulera continue Spiriva LIU as needed Duoneb as needed Continue CPAP therapy, Requesting F30 small mask. Machine malfuctioning, will request a replacement from her [email or web address] Follow-up in 6 months Coding Level of Care Code Est Pt Level 4 (08344) Diagnoses Moderate persistent asthma without complication J45.40 Asthma complication type: uncomplicated Asthma persistence: persistent Asthma severity: moderate Chronic allergic rhinitis J30.9 DUY on CPAP G47.33; Z99.89 Time Spent (min) 17
== END 2024-03-25 11:33 | disposition home or self-care (01) ==
PROVIDERS: PCP Physician Assistant; Visit Provider Hospitalist
DX: J45.40 Moderate persistent asthma, uncomplicated (principal); J30.9 Allergic rhinitis, unspecified; G47.33 Obstructive sleep apnea (adult) (pediatric); Z99.89 Dependence on other enabling machines and devices
CPT/HCPCS: 99214

== ENCOUNTER → 2024-03-25 11:07 | Outpatient (BNVA) | payer OTHER, SELFPAY | PROVIDERS: PCP Physician Assistant; Visit Provider Hospitalist | DX: J45.50 Severe persistent asthma, uncomplicated (principal); J30.9 Allergic rhinitis, unspecified; G47.33 Obstructive sleep apnea (adult) (pediatric); R91.1 Solitary pulmonary nodule; Z99.89 Dependence on other enabling machines and devices | CPT/HCPCS: 99212 ==

== ENCOUNTER 2024-09-24 12:53 | Outpatient (AMB) | payer OTHER, SELFPAY ==
--- NOTE | 2024-09-24 13:01 | A.OFFVIS_ITS ---
Vital Signs 09/24/24 13:02 Height 5 ft 4 in Weight 278 lb 14.156 oz BMI 47.9 BP 128/64 Blood Pressure Location Rt brachial Position Sitting Pulse 85 Pulse Source Pulse Oximeter Pulse Oximetry (%) 100 Oxygen Delivery Method Room Air Intake Visit Reasons: Obstructive sleep apnea Allergies No Known Allergies Allergy (Verified 09/24/24 13:06) HPI Comments Details: The patient is a 44-year-old woman known asthma . She continues to have significant shortness of breath. She has had multiple courses of prednisone for exacerbations. The last time she went to the ER at [facility] was in beginning of August and diagnosed with bronchitis and given a course of antibiotics and prednisone. She also underwent a CT scan of the chest that we reviewed demonstrating relatively normal parenchyma but evidence of bronchitis. She also has a new pulmonary nodule that needs to be followed. She continues to use the CPAP. The CPAP therapy continues to be affecting beneficial. She continues to follow-up with allergy and immunology. She has been on Cincair now for about 4 months. She has not seen any significant effects. Her IgE level was elevated previously. Also to note her hypersensitivity panel did demonstrate some activity to phoma mold. She had recent surgery for carpal tunnel on the right arm. She still still healing to this. In the meantime she has noticed increasing shortness of breath and on chest tightness. She was started on the budesonide again. She continues on the Dulera. She continues on the Spiriva. She has been on the Cinqair now for about 5 months. She also was started on Daliresp for multiple exacerbations. She seems to be tolerating okay except for GI symptoms. Hopefully soon should develop tolerance. She was evaluated for her elevated SUNDAR by Rheumatology. Did not find any rheumatological involvement at this time. However, then she developed a rash on her face concerning for malar rash. Her primary care doctor referred her to a Dermatology appointment for question lupus rash. 06/09/2023 the patient is here for pulmonary follow-up visit. The patient is starting to feel better now. She did developed COVID-19 and did have her asthma flaring up. She did require additional respiratory medication. She did not require any prednisone or antibiotics. Although she did develop a productive cough for a period time. Now the symptoms have been subsiding. She also has been using her CPAP. The CPAP therapy continues to be affecting beneficial. She does use it for more than 4 hours a night. Although sometimes the machine is shutting off on his own making it difficult for her to be able to get a good night's sleep. Seems like the machine is no longer working properly. I will request a replacement CPAP machine from her DME company to be provided if the machine is more than 5 years. Otherwise she will have to bring machine in to her DME company for evaluation. The patient has been using the Dupixent for asthma. She is tolerating the biologic well without any adverse effects at this time. 03/25/2024 the patient is here for a pulmonary follow-up visit. The patient overall has been doing well from a respiratory status she continues to respond very well to the Dupixent. Denies any allergic reaction to it denies any rashes or any conjunctivitis. She continues to use her respiratory medications as prescribed. She any prednisone. She typically does not have to use her albuterol more than once or twice a week. Her CPAP therapy continues to be affecting beneficial. She has a malfunctioning machine though. Based on her [employer] company, regional she is due for a new 1 at this time. Therefore will send a script for a replacement machine. She does use a fullface mask although sometimes she feels claustrophobic and she wishes she had a small 1. She may benefit from nasal pillows with a chinstrap but I do not have 1 available. The patient will continue using the CPAP as is been very affecting beneficial when she does use it for more than 4 hours a night. She is having issues right now because she is being displaced since her current apartment situation is being sold and is no longer available after May. So she is concerned because of her underlying respiratory issues. I did provide her a letter to make sure that she has something documenting her respiratory issues and she can be provided any assistance. Otherwise patient is doing well will follow-up in 6 months if he has any new issues she can always call for an earlier assessment. 09/24/2024 the patient is here for a pulmonary follow-up visit. Overall she is doing fairly okay. She did get a new CPAP. Although the pressures are not set up for her. Will go ahead and adjust them. Average pressure is 13.6. Her average uses more than 4 hours which is reassuring. Once we adjusted she will be able to use it longer. She is using a enough 40 fullface mask. Therefo re, we switched her pressures to APAP 12-18. In addition to that the patient is having issues with her eyes. She is going to see the cell plasterer tomorrow. She has keratoconus condition. Indeed this may be precipitated by the Dupixent. Therefore, I did suggest that if she does have the diagnosis and if is not showing any improvement or if it is not any better that she should really consider stopping it Dupixent continue her respiratory inhalers. We did talk about considering other options including going back on Xolair or trying test prior. 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 Therefore she is getting allergy shots right now she can also discuss it with her to see what she would like to do but I do believe that if Dupixent is potentially the culprit for her eyes situation it will be very important for her to stop it as her vision is important at this time. [facility] Medical History (System 10/18/23 @ 14:49 by Shanta Lawson) Carpal tunnel syndrome Allergies COVID-19 DUY on CPAP Chronic allergic rhinitis Asthma Anasarca Surgical History Hx of carpal tunnel repair Family History Mother Heart problem History of hypertension Diabetes Asthma Carpal tunnel syndrome Depression H/O knee surgery Hearing voices Father Heart problem Asthma Diabetes History of hypertension Sister Asthma Depression Fibromyalgia Brother No problems noted. Brother Asthma Down syndrome Brother Asthma Brother Asthma Brother No problems noted. Social History Alcohol intake: current Alcohol intake frequency: holidays/special occasions only Patient Tobacco Use Status: Never used Tobacco Review of Systems Const Denies night sweats Eyes Reports change in vision ENT Denies change in voice, Denies lip swelling, Denies mouth pain, Reports nasal congestion, Reports nasal discharge and Denies tongue swelling Card Denies chest pain, Reports leg edema and Reports dyspnea on exertion Resp Denies chest congestion, Reports cough, Denies excessive phlegm production, Denies pain with cough, Reports dyspnea on exertion and Reports wheezing GI Denies abdominal pain Musc Denies no additional complaints Neuro Denies Neuro-related abnormal movements Psych Denies no additional complaints Mina/Lymph Denies easy bleeding and Denies lymphadenopathy Aller/Immun Denies lip swelling, Denies tongue swelling and Reports wheezing Physical Exam Vital Signs: Last Vital Signs Pulse 85 09/24/24 13:02 BP 128/64 09/24/24 13:02 Pulse Ox 100 09/24/24 13:02 Oxygen Delivery Method Room Air 09/24/24 13:02 BMI result Body Mass Index 47.9 Const General: alert HEENT Head: Yes normocephalic Eyes Pupils: Equal, round and reactive pupils present Neck Neck: Yes normal visual inspection, Yes full ROM and Yes no lymphadenopathy Chest Chest palpation & inspection: normal inspection of the chest Resp Effort & Inspection: normal respiratory effort Auscultation: no rales, no rhonchi, no wheezes and diminished lung sounds Cardio Rate: regular rate Rhythm: regular rhythm Heart sounds: S1 normal heart sound present and S2 normal heart sound present GI Palpation (GI): Soft to palpation and nontender Auscultation: normal bowel sounds Skin General skin exam: rashes and/or lesions noted Neuro Cranial nerves: Yes Equal, round and reactive pupils present Extrem General: Yes edema Assessment & Plan Assessment & Plan (1) Asthma: Code(s): J45.909 - Unspecified asthma, uncomplicated Category: Medical Qualifiers: Asthma complication type: uncomplicated Asthma persistence: persistent Asthma severity: moderate Qualified Code(s): J45.40 - Moderate persistent asthma, uncomplicated (2) Chronic allergic rhinitis: Code(s): J30.9 - Allergic rhinitis, unspecified Category: Medical (3) DUY on CPAP: Code(s): G47.33 - Obstructive sleep apnea (adult) (pediatric); Z99.89 - Dependence on other enabling machines and devices Category: Medical Plan Continue Dulera continue Spiriva LIU as needed Duoneb as needed Continue CPAP therapy, APAP, adjusted 12-18, F40 mask Dupixent, may need to stop if keratoconnus is not better. Consider going back on Xolair continue allergy shots Follow-up in 4-6 months Coding Level of Care Code Est Pt Level 4 (62820) Diagnoses Moderate persistent asthma without complication J45.40 Asthma complication type: uncomplicated Asthma persistence: persistent Asthma severity: moderate Chronic allergic rhinitis J30.9 DUY on CPAP G47.33; Z99.89 Time Spent (min) 17
[2024-09-24 13:02] VITALS: BP 128/64; PULSE 85; O2SAT 100; BMI 47.9
== END 2024-09-24 13:32 | disposition home or self-care (01) ==
PROVIDERS: PCP Physician Assistant; Visit Provider Hospitalist
DX: J45.40 Moderate persistent asthma, uncomplicated (principal); J30.9 Allergic rhinitis, unspecified; G47.33 Obstructive sleep apnea (adult) (pediatric); Z99.89 Dependence on other enabling machines and devices
CPT/HCPCS: 99214

== ENCOUNTER → 2024-09-24 12:53 | Outpatient (BNVA) | payer OTHER, SELFPAY | PROVIDERS: PCP Physician Assistant; Visit Provider Hospitalist | DX: J45.40 Moderate persistent asthma, uncomplicated (principal); J30.9 Allergic rhinitis, unspecified; G47.33 Obstructive sleep apnea (adult) (pediatric); Z99.89 Dependence on other enabling machines and devices | CPT/HCPCS: 99212 ==